=== PATIENT | male | born 1985 | race African-American/Black ===

== ENCOUNTER 2019-09-05 07:54 | Emergency (ER) | payer OTHER ==
[~2019-09-05] VITALS: Ht 182.9 cm; Wt 99.0 kg
[2019-09-05 07:56] VITALS: BP 139/86
[2019-09-05] MEDS ORDERED: KETOROLAC 30 MG/1 ML IM ONE (08:30)
[2019-09-05] MEDS ORDERED: METHOCARBAMOL 750 MG TABLET PO ONE (08:30)
[2019-09-05] MEDS ORDERED: KETOROLAC 30 MG/1 ML ONE (08:38)
[2019-09-05] MEDS ORDERED: METHOCARBAMOL 750 MG TABLET ONE (08:38)
[2019-09-05 08:41] LABS: ALBUMIN 3.8 g/dL (3.4-5.0); ANION GAP 4 mmol/L (5-15); CALCIUM 8.9 mg/dL (8.5-10.1); CHLORIDE 105 mmol/L (98-107); CREATININE 1.51 mg/dL (0.7-1.3)
[2019-09-05 08:43] LABS: MICROSCOPIC NOT IND
[2019-09-05 08:51] LABS: CULTURE INDICATED? NO
--- NOTE | 2019-09-05 09:06 | NUR ---
REPORT FROM GUILHERME CONTRERAS. PT CARE RESPONSIBILITIES ASSUMED.
[2019-09-05 09:10] LABS: MEAN CORPUSCULAR HEMOGLOBIN 30.7 pg (27.5-34.5); MEAN CORPUSCULAR HGB CONC 33.7 g/dL (33.2-36.2); MEAN CORPUSCULAR VOLUME 91.1 fL (81-97); PLATELET COUNT 220 x10^3/uL (130-400); RED CELL DISTRIBUTION WIDTH 13.9 % (9.4-14.8)
[2019-09-05 09:12] LABS: MD SCAN
[2019-09-05 09:13] LABS: BASOPHILS # (AUTO) 0.03 x10^3/uL (0-0.1); BASOPHILS % (AUTO) 1 % (0-1); EOSINOPHILS # (AUTO) 0.13 x10^3/uL (0-0.4); EOSINOPHILS % (AUTO) 3 % (1-7); LYMPHOCYTES % (AUTO) 38 % (22-44); MONOCYTES # (AUTO) 0.22 x10^3/uL (0.2-0.8); MONOCYTES % (AUTO) 5 % (2-9); NEUTROPHILS # (AUTO) 2.26 x10^3/uL (1.8-6.8); NEUTROPHILS % (AUTO) 53 % (42-75)
[2019-09-05] MEDS ORDERED: MORPHINE SULFATE 4 MG/ML, 1ML ONE ×2 (09:52→10:43)
[2019-09-05] MEDS ORDERED: ONDANSETRON 2MG/ML, 2ML ONE (09:52)
[2019-09-05] MEDS ORDERED: SODIUM CHLORIDE 0.9% 1,000ML IVBOLUS ONE (10:00)
[2019-09-05] MEDS ORDERED: ONDANSETRON 2MG/ML, 2ML IVPush ONE (10:00)
[2019-09-05] MEDS: MORPHINE SULFATE 4 MG/ML, 1ML IVPush PRN ×2 (10:07→10:46)
== END 2019-09-05 12:43 | disposition home or self-care (01) ==
LOC: ED 11:35
DX: S39.012A Strain of muscle, fascia and tendon of lower back, initial encounter (principal); R11.0 Nausea; M54.9 Dorsalgia, unspecified; X58.XXXA Exposure to other specified factors, initial encounter; Y93.89 Activity, other specified; Y92.89 Other specified places as the place of occurrence of the external cause; Y99.8 Other external cause status
CPT/HCPCS: 36415; 74176; 80048; 81003; 82040; 85025; 96372; 96374; 96375; 99284; J1885; J2270; J2405; J7030